=== PATIENT | female | born 1960 | race Caucasian/White ===

== ENCOUNTER 2022-03-01 15:42 | Inpatient (IN) ==
[2022-03-01 18:48] LABS: ABG Base Excess 13 mEq/L (-2 to 3); ABG HCO3 39 mEq/L (21-27); ABG Oxygen Saturation 98 % (95-98); ABG PCO2 49 mmHg (35-45); ABG PO2 97 mmHg (85-104); ABG TCO2 40 mEq/L (20-26); Blood Gas VT 400 cc
[2022-03-01] MEDS ORDERED: Artificial Tears SOLN 15 ML BOTTLE BOTH EYES PRN (19:13)
[2022-03-01] MEDS: FentaNYL (PF) 1,000 MCG/100 ML IV.SOLN IVC SCH (20:13)
[2022-03-01] MEDS: Pantoprazole 40 MG VIAL IVP SCH (20:44)
[2022-03-01] MEDS: Artificial Tears SOLN 15 ML BOTTLE BOTH EYES SCH ×2 (20:44→23:37)
[2022-03-01] MEDS: Chlorhexidine Rinse 15 ML MOUTHWASH MM SCH (20:44)
[2022-03-01 21:30] LABS: Basophils % 0.1 %; Hematocrit 41.9 % (35.3-44.9); Hemoglobin 13.4 g/dL (11.5-15.4); Immature Granulocytes % 0.6 % (0-4); Lymphocytes # 0.4 K/mcL (0.6-4.6); Mean Platelet Volume 9.7 fL (9.4-12.4); Monocytes # 0.8 K/mcL (0.0-1.3); Monocytes % 9.9 %; Neutrophils # 6.6 K/mcL (1.6-8.9); Platelet Count 242 K/mcL (140-400); Red Blood Count 4.32 M/mcL (3.82-4.97); Red Cell Distribution Width 13.2 % (11.5-14.5); Segmented Neutrophils % 84.4 %; White Blood Count 7.8 K/mcL (4.3-11.1)
[2022-03-01 21:50] LABS: BUN/Creatinine Ratio 57 (6-26); Blood Urea Nitrogen 36 mg/dL (8-23); Carbon Dioxide 38 mEq/L (23-29); Chloride 98 mEq/L (98-107); Glucose 181 mg/dL (70-105); Magnesium 2.5 mg/dL (1.6-2.6); Osmolality,Calculated 313 (280-300); Potassium 4.2 mEq/L (3.5-5.1); Sodium 145 mEq/L (136-145); eGFR For African Americans > 60 (> 60); eGFR For Non-African Americans > 60 (> 60)
[2022-03-01] MEDS: MethylPREDNISolone 40 MG/ML VIAL IVP SCH (23:41)
[2022-03-02] MEDS ORDERED: Piperacillin/Tazobactam 3.375 GM in 0.9 % Sodium Chloride Mini Bag 100 ML IVPB SCH
[2022-03-02] MEDS: Norepinephrine 4 MG/254 ML IV.SOLN IVC SCH ×2 (00:35→19:57)
[2022-03-02] MEDS: Ipratropium/Albuterol Neb 3 ML IH SCH ×6 (03:17→23:08)
[2022-03-02] MEDS: FentaNYL (PF) 1,000 MCG/100 ML IV.SOLN IVC SCH ×3 (03:36→18:21)
[2022-03-02] MEDS: Artificial Tears SOLN 15 ML BOTTLE BOTH EYES SCH ×6 (03:37→23:14)
[2022-03-02 04:10] LABS: Basophils % 0.1 %; Hematocrit 41.6 % (35.3-44.9); Hemoglobin 13.3 g/dL (11.5-15.4); Immature Granulocytes % 0.5 % (0-4); Lymphocytes # 0.6 K/mcL (0.6-4.6); Lymphocytes % 4.9 %; Mean Corpuscular Hemoglobin 31.4 pg (28.0-33.3); Mean Corpuscular Volume 98.1 fL (83.0-100.0); Mean Platelet Volume 10.1 fL (9.4-12.4); Monocytes # 1.2 K/mcL (0.0-1.3); Monocytes % 9.9 %; Platelet Count 265 K/mcL (140-400); Red Blood Count 4.24 M/mcL (3.82-4.97); Red Cell Distribution Width 13.2 % (11.5-14.5); Segmented Neutrophils % 84.6 %
[2022-03-02 04:12] LABS: Neutrophils # 10.2 K/mcL (1.6-8.9); White Blood Count 12.1 K/mcL (4.3-11.1)
[2022-03-02 04:18] LABS: ABG Base Excess 11 mEq/L (-2 to 3); ABG HCO3 38 mEq/L (21-27); ABG Oxygen Saturation 96 % (95-98); ABG PCO2 61 mmHg (35-45); ABG PO2 84 mmHg (85-104); ABG TCO2 40 mEq/L (20-26); Blood Gas Modality VC; Blood Gas VT 400 cc
[2022-03-02 04:34] LABS: BUN/Creatinine Ratio 56 (6-26); Blood Urea Nitrogen 39 mg/dL (8-23); Calcium 8.7 mg/dL (8.6-10.3); Carbon Dioxide 40 mEq/L (23-29); Chloride 100 mEq/L (98-107); Glucose 165 mg/dL (70-105); Magnesium 2.5 mg/dL (1.6-2.6); Osmolality,Calculated 313 (280-300); Potassium 3.9 mEq/L (3.5-5.1); Sodium 145 mEq/L (136-145); eGFR For African Americans > 60 (> 60); eGFR For Non-African Americans > 60 (> 60)
[2022-03-02] MEDS: *HR* Enoxaparin 40 MG/0.4 ML SYRINGE SQ SCH (06:41)
[2022-03-02] MEDS: MethylPREDNISolone 40 MG/ML VIAL IVP SCH ×4 (06:44→23:14)
[2022-03-02 07:12] LABS: Adenovirus Not Detected (Not Detect); Chlamydophila pneumoniae Not Detected (Not Detect); Coronavirus 229E Not Detected (Not Detect); Coronavirus HKU1 Not Detected (Not Detect); Coronavirus NL63 Not Detected (Not Detect); Coronavirus OC43 Not Detected (Not Detect); Influenza A Subtype 2009 H1 Not Detected (Not Detect); Influenza B Not Detected (Not Detect); Mycoplasma pneumoniae Not Detected (Not Detect); Parainfluenza Virus 1 Not Detected (Not Detect); Parainfluenza Virus 2 Not Detected (Not Detect); Parainfluenza Virus 3 Not Detected (Not Detect); Parainfluenza Virus 4 Not Detected (Not Detect); Respiratory Syncytial Virus Not Detected (Not Detect); SARS-CoV-2 Not Detected (Not Detect)
[2022-03-02 07:13] LABS: Bordetella Pertussis Not Detected (Not Detect); Human Metapneumovirus DETECTED (Not Detect); Human Rhinovirus/Enterovirus Not Detected (Not Detect)
[2022-03-02] MEDS: Pantoprazole 40 MG VIAL IVP SCH (07:57)
[2022-03-02] MEDS: Piperacillin/Tazobactam 3.375 GM in 0.9 % Sodium Chloride Mini Bag 100 ML IVPB SCH ×3 (07:57→23:14)
[2022-03-02] MEDS: Chlorhexidine Rinse 15 ML MOUTHWASH MM SCH ×2 (07:57→19:42)
[2022-03-02] MEDS ORDERED: Azithromycin 500 MG in 0.9 % Sodium Chloride 250 ML IVPB SCH (09:00)
[2022-03-02] MEDS ORDERED: cefTRIAXone 1,000 MG in 0.9 % Sodium Chloride 10 ML IVP SCH (09:00)
[2022-03-02] MEDS: Budesonide/Formoterol 160/4.5 1 PUFF INH IH SCH ×2 (11:10→19:44)
[2022-03-03] MEDS: FentaNYL (PF) 1,000 MCG/100 ML IV.SOLN IVC SCH ×3 (03:46→17:32)
[2022-03-03] MEDS: Artificial Tears SOLN 15 ML BOTTLE BOTH EYES SCH ×6 (03:47→23:13)
[2022-03-03] MEDS: Ipratropium/Albuterol Neb 3 ML IH SCH ×6 (03:56→23:48)
[2022-03-03 04:03] LABS: Basophils % 0.2 %; Hematocrit 40.4 % (35.3-44.9); Hemoglobin 12.6 g/dL (11.5-15.4); Immature Granulocytes % 0.6 % (0-4); Lymphocytes # 0.3 K/mcL (0.6-4.6); Lymphocytes % 2.8 %; Mean Corpuscular HGB Conc 31.2 g/dL (31.6-35.5); Mean Corpuscular Hemoglobin 30.9 pg (28.0-33.3); Monocytes # 0.8 K/mcL (0.0-1.3); Monocytes % 7.4 %; Neutrophils # 9.5 K/mcL (1.6-8.9); Platelet Count 244 K/mcL (140-400); Red Blood Count 4.08 M/mcL (3.82-4.97); Red Cell Distribution Width 13.8 % (11.5-14.5); White Blood Count 10.7 K/mcL (4.3-11.1)
[2022-03-03 04:23] LABS: BUN/Creatinine Ratio 61 (6-26); Blood Urea Nitrogen 30 mg/dL (8-23); Calcium 8.5 mg/dL (8.6-10.3); Carbon Dioxide 42 mEq/L (23-29); Chloride 102 mEq/L (98-107); Glucose 168 mg/dL (70-105); Osmolality,Calculated 316 (280-300); Potassium 3.9 mEq/L (3.5-5.1); Sodium 148 mEq/L (136-145); eGFR For African Americans > 60 (> 60); eGFR For Non-African Americans > 60 (> 60)
[2022-03-03 04:30] LABS: ABG Base Excess 11 mEq/L (-2 to 3); ABG HCO3 39 mEq/L (21-27); ABG Oxygen Saturation 96 % (95-98); ABG PCO2 73 mmHg (35-45); ABG PH 7.34 pH Units (7.32-7.45); ABG PO2 94 mmHg (85-104); ABG TCO2 42 mEq/L (20-26); Blood Gas Modality ASSIST CONTROL; Blood Gas VT 400 cc
[2022-03-03] MEDS: MethylPREDNISolone 40 MG/ML VIAL IVP SCH ×4 (05:16→23:13)
[2022-03-03] MEDS: *HR* Enoxaparin 40 MG/0.4 ML SYRINGE SQ SCH (05:16)
[2022-03-03] MEDS: Piperacillin/Tazobactam 3.375 GM in 0.9 % Sodium Chloride Mini Bag 100 ML IVPB SCH ×3 (07:00→23:13)
[2022-03-03] MEDS: Chlorhexidine Rinse 15 ML MOUTHWASH MM SCH ×2 (07:01→20:17)
[2022-03-03] MEDS: Pantoprazole 40 MG VIAL IVP SCH (07:01)
[2022-03-03] MEDS: Norepinephrine 4 MG/254 ML IV.SOLN IVC SCH ×2 (07:02→19:53)
[2022-03-03] MEDS: Budesonide/Formoterol 160/4.5 1 PUFF INH IH SCH ×2 (07:40→23:48)
[2022-03-03] MEDS ORDERED: Ringers Solution, Lactated 1,000 ML IVC ONE (23:07)
[2022-03-03] MEDS: Dexmedetomidine HCl 400 MCG/100 ML MLS IVC SCH (23:29)
[2022-03-04] MEDS: FentaNYL (PF) 1,000 MCG/100 ML IV.SOLN IVC SCH ×3 (00:23→21:34)
[2022-03-04] MEDS: Artificial Tears SOLN 15 ML BOTTLE BOTH EYES SCH ×6 (04:09→23:09)
[2022-03-04] MEDS: Ipratropium/Albuterol Neb 3 ML IH SCH ×6 (04:10→23:14)
[2022-03-04 04:22] LABS: ABG Base Excess 15 mEq/L (-2 to 3); ABG HCO3 42 mEq/L (21-27); ABG Oxygen Saturation 96 % (95-98); ABG PCO2 64 mmHg (35-45); ABG PH 7.42 pH Units (7.32-7.45); ABG PO2 83 mmHg (85-104); ABG TCO2 44 mEq/L (20-26); Blood Gas Modality ASSIST CONTROL; Blood Gas VT 400 cc
[2022-03-04 05:04] LABS: Basophils % 0.2 %; Hematocrit 36.2 % (35.3-44.9); Hemoglobin 11.4 g/dL (11.5-15.4); Immature Granulocytes % 0.6 % (0-4); Lymphocytes # 0.4 K/mcL (0.6-4.6); Lymphocytes % 4.3 %; Mean Corpuscular HGB Conc 31.5 g/dL (31.6-35.5); Mean Corpuscular Hemoglobin 31.5 pg (28.0-33.3); Mean Platelet Volume 9.8 fL (9.4-12.4); Monocytes # 0.6 K/mcL (0.0-1.3); Monocytes % 6.6 %; Neutrophils # 8.5 K/mcL (1.6-8.9); Platelet Count 192 K/mcL (140-400); Red Blood Count 3.62 M/mcL (3.82-4.97); Red Cell Distribution Width 14.3 % (11.5-14.5); Segmented Neutrophils % 88.3 %; White Blood Count 9.6 K/mcL (4.3-11.1)
[2022-03-04 05:17] LABS: BUN/Creatinine Ratio 71 (6-26); Blood Urea Nitrogen 29 mg/dL (8-23); Calcium 8.7 mg/dL (8.6-10.3); Carbon Dioxide 42 mEq/L (23-29); Chloride 102 mEq/L (98-107); Glucose 206 mg/dL (70-105); Osmolality,Calculated 316 (280-300); Potassium 4.4 mEq/L (3.5-5.1); Sodium 147 mEq/L (136-145); eGFR For African Americans > 60 (> 60); eGFR For Non-African Americans > 60 (> 60)
[2022-03-04] MEDS: MethylPREDNISolone 40 MG/ML VIAL IVP SCH ×4 (05:21→23:09)
[2022-03-04] MEDS: *HR* Enoxaparin 40 MG/0.4 ML SYRINGE SQ SCH (05:21)
[2022-03-04] MEDS: Budesonide/Formoterol 160/4.5 1 PUFF INH IH SCH ×2 (07:30→19:48)
[2022-03-04] MEDS: Piperacillin/Tazobactam 3.375 GM in 0.9 % Sodium Chloride Mini Bag 100 ML IVPB SCH ×3 (07:48→23:08)
[2022-03-04] MEDS: Chlorhexidine Rinse 15 ML MOUTHWASH MM SCH ×2 (07:48→20:30)
[2022-03-04] MEDS: Pantoprazole 40 MG VIAL IVP SCH (07:48)
[2022-03-04] MEDS: Norepinephrine 4 MG/254 ML IV.SOLN IVC SCH (13:25)
[2022-03-04] MEDS: Dexmedetomidine HCl 400 MCG/100 ML MLS IVC SCH (18:01)
[2022-03-05] MEDS: Ipratropium/Albuterol Neb 3 ML IH SCH ×6 (03:22→23:35)
[2022-03-05 03:36] LABS: ABG Base Excess 17 mEq/L (-2 to 3); ABG HCO3 46 mEq/L (21-27); ABG Oxygen Saturation 94 % (95-98); ABG PCO2 81 mmHg (35-45); ABG PH 7.36 pH Units (7.32-7.45); ABG PO2 78 mmHg (85-104); ABG TCO2 49 mEq/L (20-26); Blood Gas Modality ASSIST CONTROL; Blood Gas VT 5 cc
[2022-03-05] MEDS: Norepinephrine 4 MG/254 ML IV.SOLN IVC SCH ×2 (03:59→21:49)
[2022-03-05] MEDS: Artificial Tears SOLN 15 ML BOTTLE BOTH EYES SCH ×5 (03:59→21:48)
[2022-03-05 05:11] LABS: Basophils % 0.1 %; Hematocrit 36.8 % (35.3-44.9); Hemoglobin 11.5 g/dL (11.5-15.4); Immature Granulocytes % 0.8 % (0-4); Lymphocytes # 0.4 K/mcL (0.6-4.6); Lymphocytes % 2.8 %; Mean Corpuscular HGB Conc 31.3 g/dL (31.6-35.5); Mean Corpuscular Hemoglobin 31.7 pg (28.0-33.3); Mean Corpuscular Volume 101.4 fL (83.0-100.0); Monocytes # 0.9 K/mcL (0.0-1.3); Monocytes % 6.2 %; Neutrophils # 12.7 K/mcL (1.6-8.9); Platelet Count 198 K/mcL (140-400); Red Blood Count 3.63 M/mcL (3.82-4.97); Red Cell Distribution Width 14.1 % (11.5-14.5); Segmented Neutrophils % 90.1 %; White Blood Count 14.1 K/mcL (4.3-11.1)
[2022-03-05] MEDS: *HR* Enoxaparin 40 MG/0.4 ML SYRINGE SQ SCH (05:19)
[2022-03-05] MEDS: MethylPREDNISolone 40 MG/ML VIAL IVP SCH (05:19)
[2022-03-05] MEDS: FentaNYL (PF) 1,000 MCG/100 ML IV.SOLN IVC SCH ×2 (05:19→14:20)
[2022-03-05 05:34] LABS: BUN/Creatinine Ratio 65 (6-26); Blood Urea Nitrogen 28 mg/dL (8-23); Calcium 8.9 mg/dL (8.6-10.3); Carbon Dioxide 43 mEq/L (23-29); Chloride 97 mEq/L (98-107); Glucose 249 mg/dL (70-105); Osmolality,Calculated 310 (280-300); Potassium 4.7 mEq/L (3.5-5.1); Sodium 143 mEq/L (136-145); eGFR For African Americans > 60 (> 60); eGFR For Non-African Americans > 60 (> 60)
[2022-03-05] MEDS: Budesonide/Formoterol 160/4.5 1 PUFF INH IH SCH ×2 (07:32→19:49)
[2022-03-05] MEDS: Piperacillin/Tazobactam 3.375 GM in 0.9 % Sodium Chloride Mini Bag 100 ML IVPB SCH ×2 (09:15→16:25)
[2022-03-05] MEDS: Doxycycline 100 MG in 0.9 % Sodium Chloride Mini Bag 100 ML IVPB SCH ×2 (09:28→21:42)
[2022-03-05] MEDS: Pantoprazole 40 MG VIAL IVP SCH (09:28)
[2022-03-05] MEDS: Chlorhexidine Rinse 15 ML MOUTHWASH MM SCH ×2 (09:29→21:42)
[2022-03-05] MEDS ORDERED: Dextrose 4 GM Chewable Tablets PO PRN ×2 (13:25)
[2022-03-05] MEDS ORDERED: D5% in Water 1,000 ML IVC PRN (13:25)
[2022-03-05] MEDS: Dexmedetomidine HCl 400 MCG/100 ML MLS IVC SCH ×2 (14:36→21:42)
[2022-03-05] MEDS: Insulin LISPRO 300 UNITS/3 ML VIAL SUBQ SCH (16:25)
[2022-03-06] MEDS: Artificial Tears SOLN 15 ML BOTTLE BOTH EYES SCH ×7 (00:02→23:41)
[2022-03-06] MEDS: FentaNYL (PF) 1,000 MCG/100 ML IV.SOLN IVC SCH ×3 (00:03→20:43)
[2022-03-06] MEDS: Piperacillin/Tazobactam 3.375 GM in 0.9 % Sodium Chloride Mini Bag 100 ML IVPB SCH ×5 (00:04→23:40)
[2022-03-06] MEDS: Ipratropium/Albuterol Neb 3 ML IH SCH ×5 (04:14→20:04)
[2022-03-06 04:28] LABS: ABG Base Excess 9 mEq/L (-2 to 3); ABG HCO3 35 mEq/L (21-27); ABG Oxygen Saturation 99 % (95-98); ABG PCO2 55 mmHg (35-45); ABG PH 7.41 pH Units (7.32-7.45); ABG PO2 142 mmHg (85-104); ABG TCO2 37 mEq/L (20-26); Blood Gas Modality ASSIST CONTROL; Blood Gas VT 400 cc
[2022-03-06] MEDS: Dexmedetomidine HCl 400 MCG/100 ML MLS IVC SCH ×3 (04:36→19:12)
[2022-03-06 05:04] LABS: Basophils % 0.4 %; Eosinophils % 0.2 %; Hemoglobin 11.9 g/dL (11.5-15.4); Immature Granulocytes % 1.4 % (0-4); Lymphocytes # 1.3 K/mcL (0.6-4.6); Lymphocytes % 11.9 %; Mean Corpuscular HGB Conc 31.3 g/dL (31.6-35.5); Mean Corpuscular Hemoglobin 31.3 pg (28.0-33.3); Mean Platelet Volume 9.8 fL (9.4-12.4); Monocytes # 0.7 K/mcL (0.0-1.3); Monocytes % 6.5 %; Neutrophils # 8.8 K/mcL (1.6-8.9); Platelet Count 187 K/mcL (140-400); Red Cell Distribution Width 14.2 % (11.5-14.5); Segmented Neutrophils % 79.6 %
[2022-03-06 05:24] LABS: BUN/Creatinine Ratio 63 (6-26); Blood Urea Nitrogen 24 mg/dL (8-23); Calcium 8.7 mg/dL (8.6-10.3); Carbon Dioxide 42 mEq/L (23-29); Chloride 96 mEq/L (98-107); Glucose 230 mg/dL (70-105); Magnesium 1.9 mg/dL (1.6-2.6); Osmolality,Calculated 307 (280-300); Sodium 143 mEq/L (136-145); eGFR For African Americans > 60 (> 60); eGFR For Non-African Americans > 60 (> 60)
[2022-03-06] MEDS: *HR* Enoxaparin 40 MG/0.4 ML SYRINGE SQ SCH (06:09)
[2022-03-06] MEDS: MethylPREDNISolone 40 MG/ML VIAL IVP SCH ×4 (06:10→17:15)
[2022-03-06] MEDS: Budesonide/Formoterol 160/4.5 1 PUFF INH IH SCH ×2 (07:30→20:05)
[2022-03-06] MEDS: Doxycycline 100 MG in 0.9 % Sodium Chloride Mini Bag 100 ML IVPB SCH ×2 (08:47→20:12)
[2022-03-06] MEDS: Chlorhexidine Rinse 15 ML MOUTHWASH MM SCH ×2 (08:47→20:12)
[2022-03-06] MEDS: Pantoprazole 40 MG VIAL IVP SCH (08:47)
[2022-03-06] MEDS ORDERED: Furosemide 40 MG/4 ML VIAL IVP ONE (09:14)
[2022-03-06] MEDS: Insulin LISPRO 300 UNITS/3 ML VIAL SUBQ SCH ×4 (10:19→23:42)
[2022-03-06] MEDS: Norepinephrine 4 MG/254 ML IV.SOLN IVC SCH (11:59)
[2022-03-06] MEDS: Insulin DETEMIR 100 UNIT/ML X5UNITS SUBQ SCH ×2 (12:59→20:44)
[2022-03-06] MEDS: *HR* LORazepam 2 MG/ML VIAL IVP SCH ×2 (16:30→20:12)
[2022-03-06] MEDS: BuPROPion SR (12 HR) 100 MG TABLET PO SCH (20:12)
[2022-03-07] MEDS: Ipratropium/Albuterol Neb 3 ML IH SCH ×7 (00:04→23:09)
[2022-03-07] MEDS: Dexmedetomidine HCl 400 MCG/100 ML MLS IVC SCH ×3 (01:55→19:20)
[2022-03-07 04:01] LABS: Basophils % 0.2 %; Hemoglobin 12.2 g/dL (11.5-15.4); Immature Granulocytes % 1.1 % (0-4); Lymphocytes # 0.5 K/mcL (0.6-4.6); Lymphocytes % 3.7 %; Mean Corpuscular Hemoglobin 31.3 pg (28.0-33.3); Mean Corpuscular Volume 94.9 fL (83.0-100.0); Monocytes # 0.8 K/mcL (0.0-1.3); Monocytes % 5.5 %; Neutrophils # 13.1 K/mcL (1.6-8.9); Platelet Count 214 K/mcL (140-400); Red Cell Distribution Width 13.6 % (11.5-14.5); Segmented Neutrophils % 89.5 %; White Blood Count 14.6 K/mcL (4.3-11.1)
[2022-03-07] MEDS: Artificial Tears SOLN 15 ML BOTTLE BOTH EYES SCH ×6 (04:03→23:37)
[2022-03-07] MEDS: Norepinephrine 4 MG/254 ML IV.SOLN IVC SCH ×2 (04:03→19:19)
[2022-03-07 04:26] LABS: ABG Base Excess 12 mEq/L (-2 to 3); ABG HCO3 38 mEq/L (21-27); ABG Oxygen Saturation 99 % (95-98); ABG PCO2 55 mmHg (35-45); ABG PH 7.45 pH Units (7.32-7.45); ABG PO2 127 mmHg (85-104); ABG TCO2 40 mEq/L (20-26); Blood Gas Modality ASSIST CONTROL; Blood Gas VT 400 cc
[2022-03-07 04:44] LABS: BUN/Creatinine Ratio 44 (6-26); Blood Urea Nitrogen 20 mg/dL (8-23); Calcium 8.8 mg/dL (8.6-10.3); Carbon Dioxide 41 mEq/L (23-29); Chloride 91 mEq/L (98-107); Glucose 165 mg/dL (70-105); Osmolality,Calculated 286 (280-300); Potassium 4.5 mEq/L (3.5-5.1); Sodium 135 mEq/L (136-145); eGFR For African Americans > 60 (> 60); eGFR For Non-African Americans > 60 (> 60)
[2022-03-07] MEDS: *HR* Enoxaparin 40 MG/0.4 ML SYRINGE SQ SCH (05:21)
[2022-03-07] MEDS: MethylPREDNISolone 40 MG/ML VIAL IVP SCH ×2 (05:22→17:28)
[2022-03-07] MEDS: Insulin LISPRO 300 UNITS/3 ML VIAL SUBQ SCH ×4 (05:58→23:38)
[2022-03-07] MEDS: Budesonide/Formoterol 160/4.5 1 PUFF INH IH SCH ×2 (07:14→19:25)
[2022-03-07] MEDS: *HR* LORazepam 2 MG/ML VIAL IVP SCH ×3 (07:27→21:55)
[2022-03-07] MEDS: Pantoprazole 40 MG VIAL IVP SCH (07:45)
[2022-03-07] MEDS: Doxycycline 100 MG in 0.9 % Sodium Chloride Mini Bag 100 ML IVPB SCH ×2 (07:45→19:51)
[2022-03-07] MEDS: Piperacillin/Tazobactam 3.375 GM in 0.9 % Sodium Chloride Mini Bag 100 ML IVPB SCH (07:45)
[2022-03-07] MEDS: Chlorhexidine Rinse 15 ML MOUTHWASH MM SCH ×2 (07:46→20:01)
[2022-03-07] MEDS: BuPROPion SR (12 HR) 100 MG TABLET PO SCH (07:46)
[2022-03-07] MEDS: Insulin DETEMIR 100 UNIT/ML X5UNITS SUBQ SCH ×2 (07:46→19:51)
[2022-03-07] MEDS ORDERED: Ipratropium/Albuterol Neb 3 ML IH ONE (08:39)
[2022-03-07] MEDS ORDERED: Ipratropium/Albuterol Neb 3 ML ONE (08:41)
[2022-03-07] MEDS ORDERED: *HR* LORazepam 2 MG/ML VIAL IVP ONE (09:53)
[2022-03-07] MEDS: FentaNYL (PF) 1,000 MCG/100 ML IV.SOLN IVC SCH (10:17)
[2022-03-07] MEDS: *HR* Dextrose 50 % in Water (Syg) 50 ML SYRINGE IVP PRN (17:28)
[2022-03-08] MEDS: Ipratropium/Albuterol Neb 3 ML IH SCH ×6 (03:14→23:09)
[2022-03-08 04:09] LABS: ABG Base Excess 9 mEq/L (-2 to 3); ABG HCO3 35 mEq/L (21-27); ABG Oxygen Saturation 98 % (95-98); ABG PCO2 52 mmHg (35-45); ABG PH 7.43 pH Units (7.32-7.45); ABG PO2 98 mmHg (85-104); ABG TCO2 36 mEq/L (20-26); Blood Gas Modality ASSIST CONTROL; Blood Gas VT 400 cc
[2022-03-08] MEDS: Dexmedetomidine HCl 400 MCG/100 ML MLS IVC SCH ×2 (04:10→10:53)
[2022-03-08] MEDS: FentaNYL (PF) 1,000 MCG/100 ML IV.SOLN IVC SCH ×2 (04:11→18:11)
[2022-03-08] MEDS: Artificial Tears SOLN 15 ML BOTTLE BOTH EYES SCH ×6 (04:11→23:18)
[2022-03-08 05:10] LABS: Phosphorous 3.7 mg/dL (2.7-4.5)
[2022-03-08] MEDS: MethylPREDNISolone 40 MG/ML VIAL IVP SCH ×2 (05:20→17:37)
[2022-03-08] MEDS: *HR* LORazepam 2 MG/ML VIAL IVP SCH ×3 (05:21→21:58)
[2022-03-08] MEDS: *HR* Enoxaparin 40 MG/0.4 ML SYRINGE SQ SCH (05:21)
[2022-03-08] MEDS: Insulin LISPRO 300 UNITS/3 ML VIAL SUBQ SCH ×4 (05:22→23:18)
[2022-03-08] MEDS: Budesonide/Formoterol 160/4.5 1 PUFF INH IH SCH ×2 (07:18→20:01)
[2022-03-08] MEDS ORDERED: *HR* LORazepam 2 MG/ML VIAL IVP ONE (07:53)
[2022-03-08] MEDS ORDERED: Furosemide 40 MG/4 ML VIAL IVP ONE (08:04)
[2022-03-08] MEDS: Doxycycline 100 MG in 0.9 % Sodium Chloride Mini Bag 100 ML IVPB SCH ×2 (08:05→20:38)
[2022-03-08] MEDS: Chlorhexidine Rinse 15 ML MOUTHWASH MM SCH ×2 (08:05→20:37)
[2022-03-08] MEDS: Pantoprazole 40 MG VIAL IVP SCH (08:06)
[2022-03-08 09:11] LABS: Basophils % 0.1 %; Eosinophils % 0.1 %; Hematocrit 37.4 % (35.3-44.9); Immature Granulocytes % 0.8 % (0-4); Lymphocytes # 0.6 K/mcL (0.6-4.6); Lymphocytes % 3.9 %; Mean Corpuscular HGB Conc 32.1 g/dL (31.6-35.5); Mean Corpuscular Hemoglobin 31.3 pg (28.0-33.3); Mean Corpuscular Volume 97.7 fL (83.0-100.0); Mean Platelet Volume 10.8 fL (9.4-12.4); Monocytes # 0.7 K/mcL (0.0-1.3); Monocytes % 5.1 %; Platelet Count 240 K/mcL (140-400); Red Blood Count 3.83 M/mcL (3.82-4.97); White Blood Count 14.5 K/mcL (4.3-11.1)
[2022-03-08 09:31] LABS: BUN/Creatinine Ratio 53 (6-26); Blood Urea Nitrogen 21 mg/dL (8-23); Calcium 8.8 mg/dL (8.6-10.3); Carbon Dioxide 36 mEq/L (23-29); Chloride 93 mEq/L (98-107); Glucose 248 mg/dL (70-105); Osmolality,Calculated 291 (280-300); Potassium 4.7 mEq/L (3.5-5.1); Sodium 135 mEq/L (136-145); eGFR For African Americans > 60 (> 60); eGFR For Non-African Americans > 60 (> 60)
[2022-03-08] MEDS: Norepinephrine 4 MG/254 ML IV.SOLN IVC SCH ×2 (10:22→12:37)
[2022-03-08] MEDS: Insulin DETEMIR 100 UNIT/ML X5UNITS SUBQ SCH (10:22)
[2022-03-08] MEDS: *HR* Dextrose 50 % in Water (Syg) 50 ML SYRINGE IVP PRN (10:49)
[2022-03-09] MEDS: Artificial Tears SOLN 15 ML BOTTLE BOTH EYES SCH ×6 (03:09→21:29)
[2022-03-09 03:58] LABS: Hemoglobin 12.3 g/dL (11.5-15.4); Mean Corpuscular HGB Conc 32.4 g/dL (31.6-35.5); Mean Corpuscular Hemoglobin 30.9 pg (28.0-33.3); Mean Corpuscular Volume 95.5 fL (83.0-100.0); Mean Platelet Volume 10.4 fL (9.4-12.4); Platelet Count 294 K/mcL (140-400); Red Blood Count 3.98 M/mcL (3.82-4.97); Red Cell Distribution Width 13.9 % (11.5-14.5)
[2022-03-09] MEDS: Ipratropium/Albuterol Neb 3 ML IH SCH ×6 (04:00→23:10)
[2022-03-09 04:13] LABS: BUN/Creatinine Ratio 62 (6-26); Blood Urea Nitrogen 23 mg/dL (8-23); Calcium 9.1 mg/dL (8.6-10.3); Carbon Dioxide 38 mEq/L (23-29); Chloride 96 mEq/L (98-107); Glucose 142 mg/dL (70-105); Osmolality,Calculated 294 (280-300); Potassium 4.5 mEq/L (3.5-5.1); Sodium 139 mEq/L (136-145); eGFR For African Americans > 60 (> 60); eGFR For Non-African Americans > 60 (> 60)
[2022-03-09 04:19] LABS: ABG Base Excess 8 mEq/L (-2 to 3); ABG HCO3 34 mEq/L (21-27); ABG Oxygen Saturation 95 % (95-98); ABG PCO2 52 mmHg (35-45); ABG PH 7.43 pH Units (7.32-7.45); ABG PO2 73 mmHg (85-104); ABG TCO2 36 mEq/L (20-26); Blood Gas VT 400 cc
[2022-03-09] MEDS: MethylPREDNISolone 40 MG/ML VIAL IVP SCH ×2 (05:10→17:12)
[2022-03-09] MEDS: *HR* LORazepam 2 MG/ML VIAL IVP SCH ×3 (05:10→21:03)
[2022-03-09] MEDS: *HR* Enoxaparin 40 MG/0.4 ML SYRINGE SQ SCH (05:11)
[2022-03-09] MEDS: Insulin LISPRO 300 UNITS/3 ML VIAL SUBQ SCH ×3 (05:11→18:05)
[2022-03-09] MEDS: FentaNYL (PF) 1,000 MCG/100 ML IV.SOLN IVC SCH (05:19)
[2022-03-09] MEDS: Budesonide/Formoterol 160/4.5 1 PUFF INH IH SCH ×2 (07:07→20:23)
[2022-03-09] MEDS: Pantoprazole 40 MG VIAL IVP SCH (08:02)
[2022-03-09] MEDS: Doxycycline 100 MG in 0.9 % Sodium Chloride Mini Bag 100 ML IVPB SCH (08:02)
[2022-03-09] MEDS: Chlorhexidine Rinse 15 ML MOUTHWASH MM SCH ×2 (08:02→21:03)
[2022-03-09] MEDS: Dexmedetomidine HCl 400 MCG/100 ML MLS IVC SCH (09:50)
[2022-03-09] MEDS: Norepinephrine 4 MG/254 ML IV.SOLN IVC SCH (15:28)
[2022-03-10] MEDS: Insulin LISPRO 300 UNITS/3 ML VIAL SUBQ SCH ×4 (00:32→17:49)
[2022-03-10] MEDS: Dexmedetomidine HCl 400 MCG/100 ML MLS IVC SCH (02:46)
[2022-03-10] MEDS: Ipratropium/Albuterol Neb 3 ML IH SCH ×6 (03:37→22:54)
[2022-03-10] MEDS: Artificial Tears SOLN 15 ML BOTTLE BOTH EYES SCH ×5 (05:16→19:48)
[2022-03-10] MEDS: *HR* LORazepam 2 MG/ML VIAL IVP SCH (05:29)
[2022-03-10] MEDS: *HR* Enoxaparin 40 MG/0.4 ML SYRINGE SQ SCH (05:30)
[2022-03-10] MEDS: MethylPREDNISolone 40 MG/ML VIAL IVP SCH ×2 (05:31→17:27)
[2022-03-10] MEDS: Budesonide/Formoterol 160/4.5 1 PUFF INH IH SCH ×2 (07:25→20:01)
[2022-03-10] MEDS: Pantoprazole 40 MG VIAL IVP SCH (07:25)
[2022-03-10] MEDS: Chlorhexidine Rinse 15 ML MOUTHWASH MM SCH ×2 (07:25→20:02)
[2022-03-10] MEDS: Norepinephrine 4 MG/254 ML IV.SOLN IVC SCH (07:26)
[2022-03-10 08:29] LABS: Basophils % 0.2 %; Hematocrit 38.9 % (35.3-44.9); Hemoglobin 12.6 g/dL (11.5-15.4); Immature Granulocytes % 0.7 % (0-4); Lymphocytes # 0.5 K/mcL (0.6-4.6); Lymphocytes % 2.8 %; Mean Corpuscular HGB Conc 32.4 g/dL (31.6-35.5); Mean Corpuscular Hemoglobin 30.8 pg (28.0-33.3); Mean Corpuscular Volume 95.1 fL (83.0-100.0); Neutrophils # 17.5 K/mcL (1.6-8.9); Platelet Count 310 K/mcL (140-400); Red Blood Count 4.09 M/mcL (3.82-4.97); Red Cell Distribution Width 13.9 % (11.5-14.5); Segmented Neutrophils % 91.3 %; White Blood Count 19.2 K/mcL (4.3-11.1)
[2022-03-10 08:35] LABS: VBG Ionized Calcium 1.09 mmol/L (1.15-1.35)
[2022-03-10 08:51] LABS: Alanine Aminotransferase 62 Units/L (7-52); Albumin 3.6 g/dL (3.5-5.7); Albumin/Globulin Ratio 1.4 (1.1-2.2); Alkaline Phosphatase 73 Units/L (34-104); Aspartate Amino Transferase 29 Units/L (13-39); BUN/Creatinine Ratio 45 (6-26); Blood Urea Nitrogen 19 mg/dL (8-23); Calcium 9.1 mg/dL (8.6-10.3); Carbon Dioxide 36 mEq/L (23-29); Chloride 98 mEq/L (98-107); Globulin 2.6 g/dL (2.4-3.5); Glucose 117 mg/dL (70-105); Osmolality,Calculated 291 (280-300); Phosphorous 3.1 mg/dL (2.7-4.5); Sodium 139 mEq/L (136-145); Total Protein 6.2 g/dL (6.4-8.9); eGFR For African Americans > 60 (> 60); eGFR For Non-African Americans > 60 (> 60)
[2022-03-10] MEDS: *HR* LORazepam 0.5 MG TABLET PO SCH ×2 (13:21→20:02)
[2022-03-10] MEDS ORDERED: Albumin Human 5% 25.0 GM/500 ML IV.SOLN ONE (17:10)
[2022-03-10 18:13] LABS: ABG Base Excess 10 mEq/L (-2 to 3); ABG HCO3 38 mEq/L (21-27); ABG Oxygen Saturation 100 % (95-98); ABG PCO2 64 mmHg (35-45); ABG PH 7.38 pH Units (7.32-7.45); ABG PO2 225 mmHg (85-104); ABG TCO2 40 mEq/L (20-26)
[2022-03-10] MEDS ORDERED: Budesonide/Formoterol 160/4.5 1 PUFF INH IH SCH (22:00)
[2022-03-11] MEDS: Insulin LISPRO 300 UNITS/3 ML VIAL SUBQ SCH ×4 (00:57→19:23)
[2022-03-11] MEDS: Ipratropium/Albuterol Neb 3 ML IH SCH ×3 (03:50→11:33)
[2022-03-11] MEDS: Artificial Tears SOLN 15 ML BOTTLE BOTH EYES SCH ×6 (03:56→19:23)
[2022-03-11] MEDS: *HR* Enoxaparin 40 MG/0.4 ML SYRINGE SQ SCH (05:41)
[2022-03-11] MEDS: MethylPREDNISolone 40 MG/ML VIAL IVP SCH ×2 (05:41→20:16)
[2022-03-11 06:30] LABS: Basophils % 0.1 %; Eosinophils % 0.1 %; Hematocrit 40.3 % (35.3-44.9); Hemoglobin 13.1 g/dL (11.5-15.4); Immature Granulocytes % 0.4 % (0-4); Lymphocytes # 1.5 K/mcL (0.6-4.6); Lymphocytes % 7.8 %; Mean Corpuscular HGB Conc 32.5 g/dL (31.6-35.5); Mean Corpuscular Volume 95.5 fL (83.0-100.0); Mean Platelet Volume 10.1 fL (9.4-12.4); Monocytes # 1.8 K/mcL (0.0-1.3); Monocytes % 9.7 %; Neutrophils # 15.4 K/mcL (1.6-8.9); Platelet Count 385 K/mcL (140-400); Red Blood Count 4.22 M/mcL (3.82-4.97); Red Cell Distribution Width 13.6 % (11.5-14.5); Segmented Neutrophils % 81.9 %; White Blood Count 18.8 K/mcL (4.3-11.1)
[2022-03-11 06:41] LABS: VBG Ionized Calcium 1.17 mmol/L (1.15-1.35)
[2022-03-11 06:48] LABS: Alanine Aminotransferase 52 Units/L (7-52); Albumin/Globulin Ratio 1.5 (1.1-2.2); Alkaline Phosphatase 74 Units/L (34-104); Aspartate Amino Transferase 22 Units/L (13-39); BUN/Creatinine Ratio 52 (6-26); Blood Urea Nitrogen 22 mg/dL (8-23); Calcium 9.4 mg/dL (8.6-10.3); Carbon Dioxide 39 mEq/L (23-29); Chloride 96 mEq/L (98-107); Globulin 2.6 g/dL (2.4-3.5); Glucose 85 mg/dL (70-105); Magnesium 2.1 mg/dL (1.6-2.6); Osmolality,Calculated 297 (280-300); Phosphorous 3.1 mg/dL (2.7-4.5); Potassium 3.5 mEq/L (3.5-5.1); Sodium 142 mEq/L (136-145); Total Protein 6.6 g/dL (6.4-8.9); eGFR For African Americans > 60 (> 60); eGFR For Non-African Americans > 60 (> 60)
[2022-03-11] MEDS: Budesonide/Formoterol 160/4.5 1 PUFF INH IH SCH ×2 (07:45→19:39)
[2022-03-11] MEDS: Chlorhexidine Rinse 15 ML MOUTHWASH MM SCH ×2 (09:36→20:16)
[2022-03-11] MEDS: *HR* LORazepam 0.5 MG TABLET PO SCH ×3 (09:36→20:16)
[2022-03-11] MEDS: Pantoprazole 40 MG VIAL IVP SCH (09:36)
[2022-03-11] MEDS: Levalbuterol Neb 0.63 MG/3 ML IH SCH ×2 (16:04→19:39)
[2022-03-11] MEDS: Ipratropium Neb 0.5 MG NEBULIZER IH SCH ×2 (16:04→19:39)
[2022-03-12] MEDS: Artificial Tears SOLN 15 ML BOTTLE BOTH EYES SCH ×6 (00:15→21:28)
[2022-03-12] MEDS: Insulin LISPRO 300 UNITS/3 ML VIAL SUBQ SCH ×4 (00:15→19:00)
[2022-03-12 03:00] LABS: VBG Ionized Calcium 1.13 mmol/L (1.15-1.35)
[2022-03-12 03:24] LABS: Basophils % 0.1 %; Hematocrit 42.8 % (35.3-44.9); Hemoglobin 13.9 g/dL (11.5-15.4); Immature Granulocytes % 0.4 % (0-4); Lymphocytes # 0.5 K/mcL (0.6-4.6); Mean Corpuscular HGB Conc 32.5 g/dL (31.6-35.5); Mean Corpuscular Volume 95.5 fL (83.0-100.0); Mean Platelet Volume 10.2 fL (9.4-12.4); Monocytes # 0.5 K/mcL (0.0-1.3); Neutrophils # 14.8 K/mcL (1.6-8.9); Platelet Count 412 K/mcL (140-400); Red Blood Count 4.48 M/mcL (3.82-4.97); Red Cell Distribution Width 13.6 % (11.5-14.5); Segmented Neutrophils % 93.5 %; White Blood Count 15.9 K/mcL (4.3-11.1)
[2022-03-12 03:38] LABS: Alanine Aminotransferase 45 Units/L (7-52); Albumin 3.9 g/dL (3.5-5.7); Albumin/Globulin Ratio 1.5 (1.1-2.2); Alkaline Phosphatase 73 Units/L (34-104); Aspartate Amino Transferase 18 Units/L (13-39); BUN/Creatinine Ratio 58 (6-26); Blood Urea Nitrogen 23 mg/dL (8-23); Calcium 9.2 mg/dL (8.6-10.3); Carbon Dioxide 37 mEq/L (23-29); Chloride 95 mEq/L (98-107); Globulin 2.6 g/dL (2.4-3.5); Glucose 188 mg/dL (70-105); Osmolality,Calculated 295 (280-300); Potassium 4.2 mEq/L (3.5-5.1); Sodium 138 mEq/L (136-145); Total Protein 6.5 g/dL (6.4-8.9); eGFR For African Americans > 60 (> 60); eGFR For Non-African Americans > 60 (> 60)
[2022-03-12] MEDS: Ipratropium Neb 0.5 MG NEBULIZER IH SCH ×4 (03:46→20:58)
[2022-03-12] MEDS: Levalbuterol Neb 0.63 MG/3 ML IH SCH ×4 (03:46→20:58)
[2022-03-12] MEDS: MethylPREDNISolone 40 MG/ML VIAL IVP SCH ×2 (05:40→19:00)
[2022-03-12] MEDS: *HR* Enoxaparin 40 MG/0.4 ML SYRINGE SQ SCH (05:40)
[2022-03-12] MEDS: Chlorhexidine Rinse 15 ML MOUTHWASH MM SCH ×2 (09:29→21:28)
[2022-03-12] MEDS: Pantoprazole 40 MG VIAL IVP SCH (09:36)
[2022-03-12] MEDS: *HR* LORazepam 0.5 MG TABLET PO SCH ×2 (09:42→14:33)
[2022-03-12] MEDS: Budesonide/Formoterol 160/4.5 1 PUFF INH IH SCH ×2 (10:35→20:55)
[2022-03-12] MEDS: BuPROPion SR (12 HR) 100 MG TABLET PO SCH (21:28)
[2022-03-12] MEDS: *HR* LORazepam 1 MG TABLET PO SCH (21:28)
[2022-03-13] MEDS: Artificial Tears SOLN 15 ML BOTTLE BOTH EYES SCH ×4 (01:09→12:24)
[2022-03-13] MEDS: Insulin LISPRO 300 UNITS/3 ML VIAL SUBQ SCH ×5 (01:09→21:18)
[2022-03-13 03:42] LABS: Basophils % 0.1 %; Eosinophils % 0.1 %; Hematocrit 43.2 % (35.3-44.9); Hemoglobin 14.2 g/dL (11.5-15.4); Immature Granulocytes % 0.4 % (0-4); Lymphocytes # 1.6 K/mcL (0.6-4.6); Lymphocytes % 10.2 %; Mean Corpuscular HGB Conc 32.9 g/dL (31.6-35.5); Mean Corpuscular Hemoglobin 31.3 pg (28.0-33.3); Mean Corpuscular Volume 95.2 fL (83.0-100.0); Mean Platelet Volume 9.9 fL (9.4-12.4); Monocytes # 1.7 K/mcL (0.0-1.3); Monocytes % 10.8 %; Neutrophils # 12.5 K/mcL (1.6-8.9); Platelet Count 409 K/mcL (140-400); Red Blood Count 4.54 M/mcL (3.82-4.97); Red Cell Distribution Width 13.4 % (11.5-14.5); Segmented Neutrophils % 78.4 %
[2022-03-13 03:51] LABS: VBG Ionized Calcium 1.15 mmol/L (1.15-1.35)
[2022-03-13 04:06] LABS: Alanine Aminotransferase 36 Units/L (7-52); Albumin 3.7 g/dL (3.5-5.7); Albumin/Globulin Ratio 1.4 (1.1-2.2); Alkaline Phosphatase 71 Units/L (34-104); Aspartate Amino Transferase 15 Units/L (13-39); BUN/Creatinine Ratio 54 (6-26); Bilirubin,Total 0.8 mg/dL (0.3-1.0); Blood Urea Nitrogen 25 mg/dL (8-23); Calcium 9.2 mg/dL (8.6-10.3); Carbon Dioxide 40 mEq/L (23-29); Chloride 97 mEq/L (98-107); Globulin 2.6 g/dL (2.4-3.5); Glucose 177 mg/dL (70-105); Magnesium 1.9 mg/dL (1.6-2.6); Osmolality,Calculated 303 (280-300); Phosphorous 2.1 mg/dL (2.7-4.5); Potassium 3.7 mEq/L (3.5-5.1); Sodium 142 mEq/L (136-145); Total Protein 6.3 g/dL (6.4-8.9); eGFR For African Americans > 60 (> 60); eGFR For Non-African Americans > 60 (> 60)
[2022-03-13] MEDS: Levalbuterol Neb 0.63 MG/3 ML IH SCH (04:25)
[2022-03-13] MEDS: Ipratropium Neb 0.5 MG NEBULIZER IH SCH (04:25)
[2022-03-13] MEDS: *HR* Enoxaparin 40 MG/0.4 ML SYRINGE SQ SCH (05:14)
[2022-03-13] MEDS: MethylPREDNISolone 40 MG/ML VIAL IVP SCH (05:14)
[2022-03-13] MEDS: Chlorhexidine Rinse 15 ML MOUTHWASH MM SCH (10:02)
[2022-03-13] MEDS: BuPROPion SR (12 HR) 100 MG TABLET PO SCH ×2 (10:03→21:22)
[2022-03-13] MEDS: *HR* LORazepam 1 MG TABLET PO SCH ×3 (10:03→21:22)
[2022-03-13] MEDS: Pantoprazole 40 MG VIAL IVP SCH (10:03)
[2022-03-13] MEDS: Levalbuterol Neb 0.63 MG/3 ML IH PRN (10:21)
[2022-03-13] MEDS: Tiotropium 10 INH DOSE IH SCH (10:22)
[2022-03-13] MEDS: Ipratropium Neb 0.5 MG NEBULIZER IH PRN (10:22)
[2022-03-13] MEDS: Budesonide/Formoterol 160/4.5 1 PUFF INH IH SCH ×2 (10:22→22:02)
[2022-03-14] MEDS: *HR* Enoxaparin 40 MG/0.4 ML SYRINGE SQ SCH (05:21)
[2022-03-14 06:53] LABS: VBG Ionized Calcium 1.19 mmol/L (1.15-1.35)
[2022-03-14 07:14] LABS: Basophils % 0.1 %; Eosinophils # 0.1 K/mcL (0.0-0.6); Eosinophils % 0.4 %; Hematocrit 40.5 % (35.3-44.9); Hemoglobin 13.3 g/dL (11.5-15.4); Immature Granulocytes % 0.5 % (0-4); Lymphocytes # 1.6 K/mcL (0.6-4.6); Lymphocytes % 11.3 %; Mean Corpuscular HGB Conc 32.8 g/dL (31.6-35.5); Mean Corpuscular Hemoglobin 31.4 pg (28.0-33.3); Mean Corpuscular Volume 95.5 fL (83.0-100.0); Monocytes # 1.1 K/mcL (0.0-1.3); Monocytes % 7.8 %; Neutrophils # 11.4 K/mcL (1.6-8.9); Platelet Count 370 K/mcL (140-400); Red Blood Count 4.24 M/mcL (3.82-4.97); Red Cell Distribution Width 13.3 % (11.5-14.5); Segmented Neutrophils % 79.9 %; White Blood Count 14.3 K/mcL (4.3-11.1)
[2022-03-14 07:51] LABS: Alanine Aminotransferase 29 Units/L (7-52); Albumin 3.7 g/dL (3.5-5.7); Albumin/Globulin Ratio 1.9 (1.1-2.2); Alkaline Phosphatase 66 Units/L (34-104); Aspartate Amino Transferase 16 Units/L (13-39); BUN/Creatinine Ratio 35 (6-26); Bilirubin,Total 0.9 mg/dL (0.3-1.0); Blood Urea Nitrogen 17 mg/dL (8-23); Carbon Dioxide 42 mEq/L (23-29); Chloride 95 mEq/L (98-107); Glucose 147 mg/dL (70-105); Magnesium 1.8 mg/dL (1.6-2.6); Osmolality,Calculated 294 (280-300); Phosphorous 2.6 mg/dL (2.7-4.5); Potassium 3.2 mEq/L (3.5-5.1); Sodium 140 mEq/L (136-145); Total Protein 5.7 g/dL (6.4-8.9); eGFR For African Americans > 60 (> 60); eGFR For Non-African Americans > 60 (> 60)
[2022-03-14] MEDS: Insulin LISPRO 300 UNITS/3 ML VIAL SUBQ SCH ×4 (08:50→20:07)
[2022-03-14] MEDS: predniSONE 20 MG TABLET PO SCH (09:54)
[2022-03-14] MEDS: *HR* LORazepam 1 MG TABLET PO SCH ×3 (09:54→20:11)
[2022-03-14] MEDS: BuPROPion SR (12 HR) 100 MG TABLET PO SCH ×2 (09:55→20:13)
[2022-03-14] MEDS: Tiotropium 10 INH DOSE IH SCH (10:07)
[2022-03-14] MEDS: Budesonide/Formoterol 160/4.5 1 PUFF INH IH SCH ×2 (10:07→22:19)
[2022-03-15] MEDS: *HR* Enoxaparin 40 MG/0.4 ML SYRINGE SQ SCH (04:17)
[2022-03-15 05:28] LABS: VBG Ionized Calcium 1.13 mmol/L (1.15-1.35)
[2022-03-15 05:38] LABS: Basophils % 0.1 %; Eosinophils % 0.3 %; Hematocrit 37.2 % (35.3-44.9); Hemoglobin 12.2 g/dL (11.5-15.4); Immature Granulocytes % 0.5 % (0-4); Lymphocytes # 2.2 K/mcL (0.6-4.6); Lymphocytes % 16.7 %; Mean Corpuscular HGB Conc 32.8 g/dL (31.6-35.5); Mean Corpuscular Hemoglobin 31.2 pg (28.0-33.3); Mean Corpuscular Volume 95.1 fL (83.0-100.0); Mean Platelet Volume 9.9 fL (9.4-12.4); Monocytes # 0.9 K/mcL (0.0-1.3); Monocytes % 6.6 %; Neutrophils # 9.8 K/mcL (1.6-8.9); Platelet Count 327 K/mcL (140-400); Red Blood Count 3.91 M/mcL (3.82-4.97); Red Cell Distribution Width 13.2 % (11.5-14.5); Segmented Neutrophils % 75.8 %
[2022-03-15 05:48] LABS: Alanine Aminotransferase 24 Units/L (7-52); Albumin 3.4 g/dL (3.5-5.7); Albumin/Globulin Ratio 1.8 (1.1-2.2); Alkaline Phosphatase 65 Units/L (34-104); Aspartate Amino Transferase 14 Units/L (13-39); BUN/Creatinine Ratio 32 (6-26); Bilirubin,Total 0.7 mg/dL (0.3-1.0); Blood Urea Nitrogen 14 mg/dL (8-23); Calcium 8.7 mg/dL (8.6-10.3); Carbon Dioxide 38 mEq/L (23-29); Chloride 99 mEq/L (98-107); Globulin 1.9 g/dL (2.4-3.5); Glucose 102 mg/dL (70-105); Magnesium 1.8 mg/dL (1.6-2.6); Osmolality,Calculated 291 (280-300); Phosphorous 1.9 mg/dL (2.7-4.5); Potassium 3.3 mEq/L (3.5-5.1); Sodium 140 mEq/L (136-145); Total Protein 5.3 g/dL (6.4-8.9); eGFR For African Americans > 60 (> 60); eGFR For Non-African Americans > 60 (> 60)
[2022-03-15] MEDS: Tiotropium 10 INH DOSE IH SCH (07:33)
[2022-03-15] MEDS: Budesonide/Formoterol 160/4.5 1 PUFF INH IH SCH ×2 (07:33→20:10)
[2022-03-15] MEDS: Insulin LISPRO 300 UNITS/3 ML VIAL SUBQ SCH ×4 (07:46→21:53)
[2022-03-15] MEDS: BuPROPion SR (12 HR) 100 MG TABLET PO SCH ×2 (08:49→21:53)
[2022-03-15] MEDS: predniSONE 20 MG TABLET PO SCH (08:49)
[2022-03-15] MEDS: *HR* LORazepam 1 MG TABLET PO SCH ×3 (08:49→21:53)
[2022-03-15] MEDS ORDERED: Potassium Phosphate 44 MEQ in 0.9 % Sodium Chloride 250 ML IVPB ONE (14:18)
[2022-03-16] MEDS: *HR* Enoxaparin 40 MG/0.4 ML SYRINGE SQ SCH (05:41)
[2022-03-16 06:31] LABS: VBG Ionized Calcium 1.15 mmol/L (1.15-1.35)
[2022-03-16 06:38] LABS: Basophils % 0.2 %; Eosinophils # 0.1 K/mcL (0.0-0.6); Eosinophils % 0.5 %; Hematocrit 38.2 % (35.3-44.9); Hemoglobin 12.1 g/dL (11.5-15.4); Immature Granulocytes % 0.3 % (0-4); Lymphocytes # 2.2 K/mcL (0.6-4.6); Lymphocytes % 18.7 %; Mean Corpuscular HGB Conc 31.7 g/dL (31.6-35.5); Mean Corpuscular Hemoglobin 30.6 pg (28.0-33.3); Mean Corpuscular Volume 96.7 fL (83.0-100.0); Mean Platelet Volume 10.2 fL (9.4-12.4); Monocytes # 0.7 K/mcL (0.0-1.3); Monocytes % 6.1 %; Neutrophils # 8.7 K/mcL (1.6-8.9); Platelet Count 309 K/mcL (140-400); Red Blood Count 3.95 M/mcL (3.82-4.97); Red Cell Distribution Width 13.2 % (11.5-14.5); Segmented Neutrophils % 74.2 %; White Blood Count 11.7 K/mcL (4.3-11.1)
[2022-03-16] MEDS: Tiotropium 10 INH DOSE IH SCH (07:29)
[2022-03-16] MEDS: Budesonide/Formoterol 160/4.5 1 PUFF INH IH SCH (07:29)
[2022-03-16 07:55] LABS: Alanine Aminotransferase 24 Units/L (7-52); Albumin 3.5 g/dL (3.5-5.7); Albumin/Globulin Ratio 1.8 (1.1-2.2); Alkaline Phosphatase 63 Units/L (34-104); Aspartate Amino Transferase 19 Units/L (13-39); BUN/Creatinine Ratio 25 (6-26); Bilirubin,Total 0.7 mg/dL (0.3-1.0); Blood Urea Nitrogen 13 mg/dL (8-23); Calcium 8.9 mg/dL (8.6-10.3); Carbon Dioxide 37 mEq/L (23-29); Chloride 99 mEq/L (98-107); Globulin 1.9 g/dL (2.4-3.5); Glucose 128 mg/dL (70-105); Magnesium 1.8 mg/dL (1.6-2.6); Osmolality,Calculated 294 (280-300); Phosphorous 2.9 mg/dL (2.7-4.5); Potassium 3.5 mEq/L (3.5-5.1); Sodium 141 mEq/L (136-145); Total Protein 5.4 g/dL (6.4-8.9); eGFR For African Americans > 60 (> 60); eGFR For Non-African Americans > 60 (> 60)
[2022-03-16] MEDS: Insulin LISPRO 300 UNITS/3 ML VIAL SUBQ SCH ×3 (08:22→17:26)
[2022-03-16] MEDS: predniSONE 20 MG TABLET PO SCH (09:37)
[2022-03-16] MEDS: *HR* LORazepam 1 MG TABLET PO SCH ×2 (09:37→15:16)
[2022-03-16] MEDS: BuPROPion SR (12 HR) 100 MG TABLET PO SCH (09:37)
[2022-03-16] MEDS: Levalbuterol Neb 0.63 MG/3 ML IH PRN (14:05)
[2022-03-16] MEDS: Ipratropium Neb 0.5 MG NEBULIZER IH PRN (14:05)
[2022-03-16 16:27] VITALS: BP 99/72; PULSE 97; TEMP 97.8; O2SAT 94
[2022-03-17] MEDS ORDERED: predniSONE 10 MG TABLET PO SCH (09:00)
== END 2022-03-16 18:21 | disposition home health service (06) | DRG 130 ==
LOC: ICNU 18:12 → 2NENU 03-11 21:51
PROVIDERS: ADMIT Family Medicine; ATTEND Family Medicine